=== PATIENT | female | born 1955 | race Asian ===

== ENCOUNTER 2022-04-11 09:36 | Day surgery (SDC) | payer MEDICARE ==
[~2022-04-11] VITALS: Ht 162.6 cm; Wt 72.5 kg
[2022-04-11] MEDS ORDERED: ALBU90OI (10:25)
--- NOTE | 2022-04-11 10:37 | NUR ---
04/11/[address] NOTIFIED THAT PT HAS ASTHMA AND CURRENTLY HAS EXPIRATORY WHEEZES IN BILATERAL LOWER LOBES. ORDERS ALBUTEROL UDN AND IT IS GIVEN PER ORDERS.
--- NOTE | 2022-04-11 13:33 | NUR ---
04/11/22 1333 HERIBERTO JOHNSON PT VOIDED PRIOR TO DISCHARGE.
--- NOTE | 2022-04-11 15:29 | NUR ---
04/11/22 1529 Florencia Sow 700CC NACL FLUID DEFICIT FROM HYSTEROSCOPY. SURGEON AND ANESTHESIA AWARE.
== END 2022-04-11 13:35 | disposition home or self-care (01) ==
LOC: ORSCSDS 09:36
PROVIDERS: Obstetrics & Gynecology
PROC: 0UB98ZZ Excision of Uterus, Via Natural or Artificial Opening Endoscopic (ICD-10-PCS; principal; 2022-04-11 11:00)
PROC: 0UB98ZX Excision of Uterus, Via Natural or Artificial Opening Endoscopic, Diagnostic (ICD-10-PCS; principal; 2022-04-11 11:00)
DX: D25.0 Submucous leiomyoma of uterus (principal); N84.0 Polyp of corpus uteri; J45.909 Unspecified asthma, uncomplicated; Z79.899 Other long term (current) drug therapy
CPT/HCPCS: 88305; A9270; J1100; J1885; J2250; J2405; J2704; J3010; J7120